=== PATIENT | female | born 1965 | race African-American/Black ===

== ENCOUNTER 2017-12-29 15:03 | Emergency (ER) | payer OTHER ==
[2017-12-29] MEDS ORDERED: OXYCODONE-ACETAMINOPHEN 5-325 MG TABLET PO ONE (16:05)
[2017-12-29] MEDS ORDERED: PROMETHAZINE HCL 25 MG TABLET PO ONE (16:05)
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
[2017-12-29 18:14] VITALS: BP 154/89
== END 2017-12-29 18:13 | disposition home or self-care (01) ==
LOC: ER 15:03
DX: T22.111A Burn of first degree of right forearm, initial encounter (principal); T14.8XXA Other injury of unspecified body region, initial encounter; W22.10XA Striking against or struck by unspecified automobile airbag, initial encounter; V43.52XA Car driver injured in collision with other type car in traffic accident, initial encounter; Y92.410 Unspecified street and highway as the place of occurrence of the external cause; R05 Cough; R10.9 Unspecified abdominal pain; M54.9 Dorsalgia, unspecified; M54.2 Cervicalgia; M25.511 Pain in right shoulder; M25.561 Pain in right knee; I10 Essential (primary) hypertension; F17.210 Nicotine dependence, cigarettes, uncomplicated; D71 Functional disorders of polymorphonuclear neutrophils
CPT/HCPCS: 71046; 72050; 99284

== ENCOUNTER 2018-08-08 00:02 | Emergency (ER) | payer MEDICAID, OTHER ==
[2018-08-08] MEDS ORDERED: PENICILLIN V POTASSIUM 500 MG TABLET PO ONE (01:30)
[2018-08-08] MEDS ORDERED: HYDROCODONE/ACETAMINOPHEN 7.5-325 MG TABLET PO ONE (01:31)
--- NOTE | 2018-08-08 01:44 | ER Document Report ---
HPI - HPI Patient complains to provider of: toothache Time Seen by Provider: 08/08/18 00:30 Pain Level: 4 Context: Patient is a 52-year-old female presents to the emergency department complaining of left upper tooth pain since Monday. Patient states she has been taking Excedrin every 4 hours which has not helped her pain. States she was to the dentist over a year ago and had dental work done on her lower teeth. Patient stated the pain is moving into her left upper jaw which is why she presents to the ED. PMH: None Medications: None Allergies: Compazine - REPRODUCTIVE Reproductive: DENIES: : Past Medical History - General Information source: Patient - Social History Smoking Status: Current Every Day Smoker Family History: Reviewed & Not Pertinent Patient has suicidal ideation: No Patient has homicidal ideation: No Renal/ Medical History: Denies: Hx Peritoneal Dialysis Past Surgical History: Reports: Hx Hysterectomy Vertical Provider Document - CONSTITUTIONAL Agree With Documented VS: Yes Notes: GENERAL: Alert, interacts well. No acute distress. HEAD: Normocephalic, atraumatic. EYES: Pupils equal, round, and reactive to light. Extraocular movements intact. ENT: Oral mucosa moist, tongue midline. Patient only has 2 teeth in her upper jaw the tooth in question appears to be #11. Obvious dental carry noted to teeth mostly black in color. Minor erythema noted to the gumline with no area of fluctuance or induration noted. No facial swelling noted. Negative Dov's angina. NECK: Full range of motion. Supple. Trachea midline. LUNGS: Clear to auscultation bilaterally, no wheezes, rales, or rhonchi. No respiratory distress. HEART: Regular rate and rhythm. No murmur ABDOMEN: Soft, non-tender. Non-distended. Bowel sounds present in all 4 quadrants. EXTREMITIES: Moves all 4 extremities spontaneously. No edema, normal radial and dorsalis pedis pulses bilaterally. No cyanosis. BACK: no cervical, thoracic, lumbar midline tenderness. No saddle anesthesia, normal distal neurovascular exam. NEUROLOGICAL: Alert and oriented x3. Normal speech. cranial nerves II through XII grossly intact PSYCH: Normal affect, normal mood. SKIN: Warm, dry, normal turgor. No rashes or lesions noted. - INFECTION CONTROL TRAVEL OUTSIDE OF THE [place] IN LAST 30 DAYS: No Course - Re-evaluation Re-evalutation: 08/08/18 01:44 Discussed tooth infection with patient at bedside and antibiotic use. Discussed following up with [facility] for dental work. Patient voices understanding. Patient is non-tachycardic, afebrile at this time, stable for discharge. - Vital Signs Vital signs: Temp Pulse Resp BP Pulse Ox 98.8 F 81 18 166/97 H 99 08/08/18 00:10 08/08/18 00:10 08/08/18 00:10 08/08/18 00:10 08/08/18 00:10 Discharge - Discharge Clinical Impression: Tooth pain, Dental caries Condition: Stable Disposition: HOME, SELF-CARE Instructions: [facility], Toothache ([facility]), Penicillin V K ([facility]) Prescriptions: Penicillin V Potassium [Penicillin Vk 500 mg Tablet] 500 mg PO BID #20 tablet
[2018-08-08 01:49] VITALS: BP 127/81
== END 2018-08-08 01:49 | disposition home or self-care (01) ==
LOC: ER 00:02
DX: K08.89 Other specified disorders of teeth and supporting structures (principal); K02.9 Dental caries, unspecified; F17.200 Nicotine dependence, unspecified, uncomplicated
CPT/HCPCS: 99282; J3490

== ENCOUNTER 2019-01-01 16:04 | Emergency (ER) | payer SELFPAY ==
[2019-01-01 16:08] VITALS: BP 142/76
[2019-01-01] MEDS ORDERED: PREDNISONE 20 MG TABLET PO ONE (16:38)
[2019-01-01] MEDS ORDERED: DIPHENHYDRAMINE HCL 25 MG CAPSULE PO ONE (16:38)
[2019-01-01] MEDS ORDERED: FAMOTIDINE 20 MG TABLET PO ONE (16:38)
--- NOTE | 2019-01-01 16:44 | ER Document Report ---
HPI - HPI Time Seen by Provider: 01/01/19 16:25 Pain Level: 4 Notes: Patient is a 53-year-old female presented to the emergency department after being bitten/stung on the right knee by a bee or wasp yesterday. Patient reports there is redness and itchiness to the area. She states she took Benadryl yesterday but has not taken any other medication. Patient denies any known allergy to bees. 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 - REPRODUCTIVE Reproductive: DENIES: : Past Medical History - General Information source: Patient - Social History Smoking Status: Never Smoker Frequency of alcohol use: None Drug Abuse: None Family History: Reviewed & Not Pertinent - Medical History Medical History: Negative Renal/ Medical History: Denies: Hx Peritoneal Dialysis Past Surgical History: Reports: Hx Hysterectomy - Immunizations Immunizations up to date: Yes Vertical Provider Document - CONSTITUTIONAL Notes: PHYSICAL EXAMINATION: GENERAL: Well-appearing, well-nourished and in no acute distress. HEAD: Atraumatic, normocephalic. EYES: Pupils equal round extraocular movements intact, conjunctiva are normal. ENT: Nares patent NECK: Normal range of motion LUNGS: No respiratory distress Musculoskeletal: Normal range of motion NEUROLOGICAL: Normal speech, normal gait. PSYCH: Normal mood, normal affect. SKIN: Erythema noted over right knee, consistent with insect bite, no underlying cellulitis noted. No fluctuance or induration. - INFECTION CONTROL TRAVEL OUTSIDE OF THE [place] IN LAST 30 DAYS: No Course - Re-evaluation Re-evalutation: Examination is consistent with insect sting. Patient will be encouraged to take Benadryl and she will be started on Pepcid and prednisone. Follow-up with PCP if not better in 3 to 5 days. - Vital Signs Vital signs: Temp Pulse Resp BP Pulse Ox 98.8 F 86 18 142/76 H 96 01/01/19 16:07 01/01/19 16:07 01/01/19 16:07 01/01/19 16:07 01/01/19 16:07 Discharge - Discharge Clinical Impression: Insect bite Qualifiers: Encounter type: initial encounter Site of insect bite: unspecified site Qualified Code(s): W57.XXXA - Bitten or stung by nonvenomous insect and other nonvenomous arthropods, initial encounter Condition: Stable Disposition: HOME, SELF-CARE Additional Instructions: Insect Sting You've been stung by an insect. The venom can cause pain, redness, and swelling. Right after the sting, we sometimes use adrenaline to reduce the reaction to the venom. This also stops any allergic reaction. You should apply cold compresses, rest and elevate the affected part, and take antihistamines. A more severe, itchy red swelling sometimes develops the next day. This is a local allergic reaction to the venom. This local allergy isn't dangerous. We treat it with cortisone-type medicine and antihistamines. Sometimes we use antibiotics if we're worried about infection. If you develop a fever, chills, a red streak, or swollen glands in the area of the bite, infection may be starting. Return at once. Insect stings from the bee and hornet family may cause a severe allergic reaction. Symptoms include hoarseness, shortness of breath, general redness of the skin, general itching, or lightheadedness. If any of these symptoms occur, you'll be treated with adrenalin and cortisone-like steroids. You should carry an "Anaphylaxis Kit" with you in the summer months so you can administer these medications to yourself before getting emergency medical care. Please take medication as prescribed. Take the prednisone starting tomorrow as you were given your first dose today. Please take 50 mg of Benadryl every 6 hours, you were given the first dose here in the emergency department. Please also take Pepcid 20 mg twice daily. You can purchase this [id number]. Do your best to try not to scratch the area. Per your request I am providing you with a prescription for an EpiPen as she stated that you have had an anaphylactic reaction to an insect in the past. Return to the emergency department with any new or worsening symptoms. If your ganglion cyst becomes too bothersome for you, please follow-up with orthopedics. I have enclosed their contact info below. Prescriptions: Epinephrine [Epipen 2-Bonilla] 0.3 mg IM ONCE PRN #1 packet PRN Reason: Prednisone [Deltasone 20 mg Tablet] 3 tab PO DAILY 5 Days #12 tablet Forms: Return to Work, Treatment of Relative/Child Referrals: SUMMER VILLANUEVA, DO [ACTIVE STAFF] - Follow up as needed
== END 2019-01-01 16:50 | disposition home or self-care (01) ==
LOC: ER 16:04
DX: L29.9 Pruritus, unspecified (principal); W57.XXXA Bitten or stung by nonvenomous insect and other nonvenomous arthropods, initial encounter; Z90.710 Acquired absence of both cervix and uterus
CPT/HCPCS: 99281; J7512